=== PATIENT | female | born 1950 | race Caucasian/White ===

== ENCOUNTER 2021-12-20 15:03 | Emergency (ER) | payer OTHER ==
[~2021-12-20] VITALS: Ht 160 cm; Wt 51.4 kg
[2021-12-20 17:18] LABS: COVID AG,FIA SOURCE NASAL SWAB
[2021-12-20 17:18] LABS: BASOPHILS % (AUTO) 0.7 % (0.0-2.0); HEMATOCRIT 35.9 % (36-46); HEMOGLOBIN 12.1 g/dL (12.0-16.0); LYMPHOCYTES # (AUTO) 1.8 K/uL (1.0-4.8); LYMPHOCYTES % (AUTO) 24.5 % (22.0-44.0); MEAN CORPUSCULAR HEMOGLOBIN 33.2 pg (26.0-34.0); MEAN CORPUSCULAR HGB CONC 33.7 G/dL (31.0-37.0); MEAN CORPUSCULAR VOLUME 99 fL (80-100); MONOCYTES # (AUTO) 0.5 K/uL (0.1-1.0); MONOCYTES % (AUTO) 6.5 % (2.0-9.0); NEUTROPHILS # (AUTO) 4.9 K/uL (1.8-7.7); NEUTROPHILS % (AUTO) 67.3 % (40.0-70.0); PLATELET COUNT (AUTO) 381 K/uL (150-450); RED BLOOD CELL COUNT(AUTO) 3.65 MIL/uL (4.00-5.20); RED CELL DISTRIBUTION WIDTH 13.3 % (11.5-14.5)
[2021-12-20 17:28] LABS: ANION GAP 12 mmol/L (8-16); CALCIUM, TOTAL 9.6 mg/dL (8.8-10.5); CARBON DIOXIDE 24 mmol/L (22-29); CHLORIDE 103 mmol/L (98-107); CREATININE 0.73 mg/dL (0.60-1.30); GLUCOSE,RANDOM 138 mg/dL (70-110); POTASSIUM 3.7 mmol/L (3.5-5.1); SODIUM SERUM 139 mmol/L (136-145); UREA NITROGEN, BLOOD 18 mg/dL (7-18)
[2021-12-20 17:30] LABS: GLOMERULAR FILTR. RATE CALC > 60 mL/min (>60)
[2021-12-20 17:35] LABS: ALANINE AMINOTRANSFERASE 23 U/L (12-78); ALBUMIN 3.9 g/dL (3.4-5.0); ALKALINE PHOSPHATASE 86 U/L (46-116); ASPARTATE AMINOTRANSFERASE 20 U/L (15-37); BILIRUBIN,TOTAL 0.7 mg/dL (0.1-1.0); TOTAL PROTEIN, SERUM 7.6 g/dL (6.4-8.2)
[2021-12-20] MEDS ORDERED: METF-1211 PO (18:19)
[2021-12-20] MEDS ORDERED: LISI-658 PO (18:19)
[2021-12-20] MEDS ORDERED: MELA3TAB89 PO (18:19)
[2021-12-20] MEDS ORDERED: ATOR40TA28 PO (18:19)
[2021-12-20] MEDS ORDERED: TIMO5DRO21 OU (18:19)
[2021-12-20] MEDS ORDERED: XALA2.5OS OU (18:19)
[2021-12-21 02:07] VITALS: BP 131/87
== END 2021-12-21 02:48 | disposition short-term general hospital (02) ==
LOC: EMS 15:14
DX: F32.9 Major depressive disorder, single episode, unspecified (principal); R45.851 Suicidal ideations; F25.9 Schizoaffective disorder, unspecified; F03.90 Unspecified dementia, unspecified severity, without behavioral disturbance, psychotic disturbance, mood disturbance, and anxiety; F32.A Depression, unspecified; Z20.822 Contact with and (suspected) exposure to COVID-19
CPT/HCPCS: 99291; 87426; 80053; 85025; 36415; G0480